=== PATIENT | female | born 1990 ===

== ENCOUNTER 2018-08-24 19:20 | Emergency (ER) | payer BC ==
--- NOTE | 2018-08-24 19:30 | EDM.PDOC ---
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 She states when she went to the bathroom she had noticed some light spotting when she went to wipe. She is concerned as she has had multiple miscarriages in the past. States she is approximately 8 weeks , "I've never made it this far in ". She did have a OB transvaginal ultrasound in the ER on 08/01/18 for abdominal cramping in early . Ultrasound showed a small intrauterine fluid collection, possibly representing early IUP. Committed repeat ultrasound and serial quantitative hCGs. She states she has not had any follow-up since that ER visit. Her first OB appointment is on September [address] Dodson. Patient denies any fever, chills, headache, change in vision, syncope or near syncope. Denies any chest pain, back pain, shortness of breath or cough. Denies any abdominal pain, nausea, vomiting, diarrhea, constipation or dysuria. Has not noted any blood in urine or stool. Patient has been eating and drinking appropriately. , P:0 with her last menstrual period being June 28, 2018. Review of systems: As per history of present illness and below otherwise all systems reviewed and negative. Past medical history: As per history of present illness and as reviewed below otherwise noncontributory. Surgical history: As per history of present illness and as reviewed below otherwise noncontributory. Social history: See social history for further information Family history: As per history of present illness and as reviewed below otherwise noncontributory. Physical exam: General: Well-developed and well-nourished 27-year-old female. Alert and oriented. Nontoxic appearing and in no acute distress. HEENT: Atraumatic, normocephalic, pupils equal and reactive bilaterally, negative for conjunctival pallor or scleral icterus, mucous membranes moist, TMs normal bilaterally, throat clear, neck supple, nontender, trachea midline. No drooling or trismus noted. No meningeal signs. No hot potato voice noted. Lungs: Clear to auscultation, breath sounds equal bilaterally, chest nontender. Heart: S1S2, regular rate and rhythm without overt murmur Abdomen: Soft, nondistended, nontender. Negative for masses or hepatosplenomegaly. Negative for costovertebral tenderness. Pelvis: Stable nontender. Genitourinary: This was done with consent and a nozzle worker at the bedside. External genitalia appears within normal limits. Cervical os is closed and no blood in the vaginal vault or coming from the cervical os. No discomfort or tenderness with exam. Rectal: Deferred. Skin: Intact, warm, dry. No lesions or rashes noted. Extremities: Atraumatic, moves all extremities per self without difficulty or deficits, negative for cords or calf pain. Neurovascular unremarkable. Neuro: Awake, alert, oriented. Cranial nerves II through XII unremarkable. Cerebellum unremarkable. Motor and sensory unremarkable throughout. Exam nonfocal. Notes: Quant HCG 76870. Ultrasound shows a live early IUP with a estimated age of 8 weeks and 4 days. Tiny probable subchorionic hemorrhage. Lab work his unremarkable. I did discuss with patient the need for follow-up and having repeat/serial quantitative hCGs. Supportive care measures were reviewed and discussed. Voices understanding and is agreeable to plan of care. Denies any further questions or concerns at this time. Diagnostics: CBC, CMP, UA, Quant HCGU, OB U/S, AB/RH Therapeutics: None Prescription: Outpatient Quant HCG Impression: Vaginal leading first trimester Plan: 1. Avoid any pelvic activity until cleared by your BULK INTAKE WORKER (sex, tampons, etc...) 2. vitamin daily. Tylenol as needed for pain management. 3. Please follow-up with Dr. Dodson for serial quant HCG ( hormone). Should have this redrawn on Monday. 4. Return to the ED as needed and as discussed. Definitive disposition and diagnosis as appropriate pending reevaluation and review of above. denies pain Pain Score (Numeric/FACES): 0 - Related Data Allergies Allergy/AdvReac Type Severity Reaction Status Date / Time shellfish derived Allergy Swelling Verified 08/24/18 19:34 Home Meds: Home Meds LORazepam [Ativan] 0.5 mg PO ASDIRECTED PRN 08/24/18 [History] Pnv No.95/Ferrous Fum/Folic AC [ Multivitamin Tablet] 1 each PO DAILY [History] buPROPion HCl [Wellbutrin Xl] 300 mg PO DAILY 08/24/18 [History] ED ROS GENERAL - Review of Systems Review Of Systems: ROS reveals no pertinent complaints other than HPI. ED EXAM - Physical Exam Exam: See Below (See dictation) Course - Vital Signs Last Recorded V/S: Last Vital Signs Temp 97.6 F 08/24/18 19:35 Pulse 84 08/24/18 19:35 Resp 18 08/24/18 19:35 BP 109/73 08/24/18 19:35 Pulse Ox 98 08/24/18 19:35 - Orders/Labs/Meds Labs: Laboratory Tests 08/24/18 08/24/18 08/24/18 Range/Units 19:35 20:55 20:55 WBC 14.53 H (4.0-11.0) K/uL RBC 4.56 (4.30-5.90) M/uL Hgb 12.2 (12.0-16.0) g/dL Hct 37.8 (36.0-46.0) % MCV 82.9 (80.0-98.0) fL MCH 26.8 L (27.0-32.0) pg MCHC 32.3 (31.0-37.0) g/dL RDW Std Deviation 42.8 (28.0-62.0) fl RDW Coeff of Judy 14 (11.0-15.0) % Plt Count 334 (150-400) K/uL MPV 9.60 (7.40-12.00) fL Neut % (Auto) 72.5 (48.0-80.0) % Lymph % (Auto) 19.5 (16.0-40.0) % [place] % (Auto) 6.8 (0.0-15.0) % Eos % (Auto) 1.1 (0.0-7.0) % Baso % (Auto) 0.1 (0.0-1.5) % Neut # (Auto) 10.5 H (1.4-5.7) K/uL Lymph # (Auto) 2.8 H (0.6-2.4) K/uL [place] # (Auto) 1.0 H (0.0-0.8) K/uL Eos # (Auto) 0.2 (0.0-0.7) K/uL Baso # (Auto) 0.0 (0.0-0.1) K/uL Nucleated RBC % 0.0 /100WBC Nucleated RBCs # 0 K/uL Sodium 138 (136-145) mmol/L Potassium 4.3 (3.5-5.1) mmol/L Chloride 102 (98-107) mmol/L Carbon Dioxide 23.2 (21.0-32.0) mmol/L BUN 13 (7.0-18.0) mg/dL Creatinine 0.6 (0.6-1.0) mg/dL Est Cr Clr Drug Dosing 116.50 mL/min Estimated GFR (MDRD) > 60.0 ml/min Glucose 98 (74-106) mg/dL Calcium 9.3 (8.5-10.1) mg/dL Total Bilirubin 0.2 (0.2-1.0) mg/dL AST 15 (15-37) IU/L ALT 23 (14-63) IU/L Alkaline Phosphatase 94 (46-116) U/L Total Protein 7.9 (6.4-8.2) g/dL Albumin 3.5 (3.4-5.0) g/dL Globulin 4.4 H (2.6-4.0) g/dL Albumin/Globulin Ratio 0.8 L (0.9-1.6) HCG, Quant 02840.0 mIU/mL Urine Color YELLOW Urine Appearance CLEAR Urine pH 6.0 (5.0-8.0) Ur Specific [place] >= 1.030 (1.001-1.035) Urine Protein NEGATIVE (NEGATIVE) mg/dL Urine Glucose (UA) NEGATIVE (NEGATIVE) mg/dL Urine Ketones NEGATIVE (NEGATIVE) mg/dL Urine Occult Blood MODERATE H (NEGATIVE) Urine Nitrite NEGATIVE (NEGATIVE) Urine Bilirubin NEGATIVE (NEGATIVE) Urine Urobilinogen 0.2 (<2.0) EU/dL Ur Leukocyte Esterase NEGATIVE (NEGATIVE) Urine RBC 0-1 (0-2/HPF) Urine WBC 0-1 (0-5/HPF) Ur Epithelial Cells RARE (NONE-FEW) Urine Bacteria RARE (NEGATIVE) Blood Type 08/24/18 Range/Units 20:55 WBC (4.0-11.0) K/uL RBC (4.30-5.90) M/uL Hgb (12.0-16.0) g/dL Hct (36.0-46.0) % MCV (80.0-98.0) fL MCH (27.0-32.0) pg MCHC (31.0-37.0) g/dL RDW Std Deviation (28.0-62.0) fl RDW Coeff of Judy (11.0-15.0) % Plt Count (150-400) K/uL MPV (7.40-12.00) fL Neut % (Auto) (48.0-80.0) % Lymph % (Auto) (16.0-40.0) % [place] % (Auto) (0.0-15.0) % Eos % (Auto) (0.0-7.0) % Baso % (Auto) (0.0-1.5) % Neut # (Auto) (1.4-5.7) K/uL Lymph # (Auto) (0.6-2.4) K/uL [place] # (Auto) (0.0-0.8) K/uL Eos # (Auto) (0.0-0.7) K/uL Baso # (Auto) (0.0-0.1) K/uL Nucleated RBC % /100WBC Nucleated RBCs # K/uL Sodium (136-145) mmol/L Potassium (3.5-5.1) mmol/L Chloride (98-107) mmol/L Carbon Dioxide (21.0-32.0) mmol/L BUN (7.0-18.0) mg/dL Creatinine (0.6-1.0) mg/dL Est Cr Clr Drug Dosing mL/min Estimated GFR (MDRD) ml/min Glucose (74-106) mg/dL Calcium (8.5-10.1) mg/dL Total Bilirubin (0.2-1.0) mg/dL AST (15-37) IU/L ALT (14-63) IU/L Alkaline Phosphatase (46-116) U/L Total Protein (6.4-8.2) g/dL Albumin (3.4-5.0) g/dL Globulin (2.6-4.0) g/dL Albumin/Globulin Ratio (0.9-1.6) HCG, Quant mIU/mL Urine Color Urine Appearance Urine pH (5.0-8.0) Ur Specific [place] (1.001-1.035) Urine Protein (NEGATIVE) mg/dL Urine Glucose (UA) (NEGATIVE) mg/dL Urine Ketones (NEGATIVE) mg/dL Urine Occult Blood (NEGATIVE) Urine Nitrite (NEGATIVE) Urine Bilirubin (NEGATIVE) Urine Urobilinogen (<2.0) EU/dL Ur Leukocyte Esterase (NEGATIVE) Urine RBC (0-2/HPF) Urine WBC (0-5/HPF) Ur Epithelial Cells (NONE-FEW) Urine Bacteria (NEGATIVE) Blood Type A POSITIVE Departure - Departure Time of Disposition: 21:20 Disposition: Home, Self-Care 01 Clinical Impression: Vaginal bleeding in patient at less than 20 weeks gestation - Discharge Information Instructions: Vaginal Bleeding During , First Trimester Referrals: Sharlene Tafoya NP [Primary Care Provider] - Forms: ED Department Discharge Additional Instructions: The following information is given to patients seen in the emergency department who are being discharged to home. This information is to outline your options for follow-up care. We provide all patients seen in our emergency department with a follow-up referral. The need for follow-up, as well as the timing and circumstances, are variable depending upon the specifics of your emergency department visit. If you don't have a primary care physician on staff, we will provide you with a referral. We always advise you to contact your personal physician following an emergency department visit to inform them of the circumstance of the visit and for follow-up with them and/or the need for any referrals to a consulting specialist. The emergency department will also refer you to a specialist when appropriate. This referral assures that you have the opportunity for follow-up care with a specialist. All of these measure are taken in an effort to provide you with optimal care, which includes your follow-up. Under all circumstances we always encourage you to contact your private physician who remains a resource for coordinating your care. When calling for follow-up care, please make the office aware that this follow-up is from your recent emergency room visit. If for any reason you are refused follow-up, please contact the [facility] Emergency Department at and asked to speak to the emergency department charge nurse. [facility] [address] [place] [address] [facility] [address] [place] [address] 1. Avoid any pelvic activity until cleared by your BULK INTAKE WORKER (sex, tampons, etc...) 2. vitamin daily. Tylenol as needed for pain management. 3. Please follow-up with Dr. Dodson for serial quant HCG ( hormone). Should have this redrawn on Monday. 4. Return to the ED as needed and as discussed.
--- NOTE | 2018-08-24 21:13 | US ---
INDICATION: SPOTTING, EARLY OB OBSTETRICAL ULTRASOUND Technique: Transvaginal scanning of the pelvis was performed. Findings: The uterus contains a gestational sac. The gestational sac contains a yolk sac and an embryonic pole which exhibits cardiac activity with a heart rate of 173 BPM. The crown-rump length corresponds to an estimated menstrual age of 8 weeks 4 days and an KAMILLA of 04/01/2019. There is a slit-like hypoechoic collection within the uterus adjacent to the gestational sac, 6 millimeters in length, which may represent a tiny subchorionic hemorrhage. A rounded 3-4 millimeter fluid collection is seen in the right uterine fundus, questionably representing an additional tiny subchorionic hemorrhage. The ovaries appear within normal limits bilaterally. There is a probable left ovarian corpus luteum. A trace amount of free pelvic fluid is identified, likely physiologic. IMPRESSION: 1. Live early intrauterine with estimated menstrual age of 8 weeks 4 days and KAMILLA of 04/01/2019. 2. Tiny probable subchorionic hemorrhage or hemorrhages, as noted above. KOKI BANEGAS MD [employer] Dictated by Ayden Banegas MD @ 08/24/2018 9:10:59 PM Dictated by: Ayden Banegas MD @ 08/24/2018 21:12:06 (Electronically Signed)
[2018-08-24 21:44] LABS: CHLORIDE,CL 102 mmol/L (98-107); SODIUM,NA 138 mmol/L (136-145)
== END 2018-08-24 22:05 | disposition home or self-care (01) ==
LOC: MW.ED 19:20
DX: O20.9 Hemorrhage in early pregnancy, unspecified (principal); Z79.899 Other long term (current) drug therapy; Z91.013 Allergy to seafood; Z3A.08 8 weeks gestation of pregnancy
CPT/HCPCS: 36415; 76801; 76801-26; 80053; 81001; 84702; 85025; 86900; 86901; 99284; 99284-25

== ENCOUNTER 2019-03-25 23:14 | Inpatient (IN) | payer BC ==
[2019-03-26] MEDS ORDERED: Carboprost Tromethamine 250 MCG/1 ML Amp IM PRN (00:29)
[2019-03-26] MEDS ORDERED: Sodium Chloride 0.9% 2.5 ML Syringe FLUSH PRN (00:29)
[2019-03-26] MEDS ORDERED: Ampicillin 2 GM in Sodium Chloride 0.9% 100 ML IV ONE (00:29)
[2019-03-26] MEDS ORDERED: Butorphanol 1 MG/ML SDV IVPUSH PRN (00:29)
[2019-03-26] MEDS ORDERED: Sodium Chloride 0.9% 10 ML Syringe FLUSH PRN (00:29)
[2019-03-26] MEDS ORDERED: Methylergonovine 0.2 MG/1 ML Amp IM PRN (00:29)
[2019-03-26] MEDS ORDERED: Misoprostol 200 MCG Tab PO PRN (00:29)
[2019-03-26] MEDS ORDERED: Tranexamic Acid 1,000 MG in Sodium Chloride 0.9% 100 ML IV PRN (00:29)
[2019-03-26] MEDS ORDERED: Water For Irrigation,Sterile 1,000 ML Container IRR PRN (00:29)
[2019-03-26] MEDS ORDERED: Lidocaine 1% 50 ML MDV INJECT PRN (00:29)
[2019-03-26] MEDS ORDERED: Ondansetron 4 MG/2 ML SDV IVPUSH PRN (00:29)
[2019-03-26] MEDS ORDERED: Nalbuphine 10 MG/1 ML Vial IVPUSH PRN (00:29)
[2019-03-26] MEDS ORDERED: Sodium Chloride 0.9% 10 ML SDV IV PRN (00:29)
[2019-03-26] MEDS ORDERED: Oxytocin/0.9 % Sodium Chloride 30 UNIT/500 ML BAG IV SCH ×2 (00:30→16:00)
[2019-03-26] MEDS ORDERED: Lactated Ringers 1,000 ML IV SCH (00:30)
[2019-03-26] MEDS ORDERED: Misoprostol 50 MCG (1/2 of 100 MCG) Tab PO ONE ×2 (00:37→06:28)
[2019-03-26] MEDS: Ampicillin 1 GM in Sodium Chloride 0.9% 50 ML IV SCH ×4 (05:04→18:47)
--- NOTE | 2019-03-26 06:20 | PCM.LDHP ---
L&D History of Present Illness - General Date of Service: 03/26/19 Admit Problem/Dx: Patient Status Order with Admit Dx/Problem 03/25/19 23:27 Patient Status [ADT] Routine 03/26/19 00:29 Patient Status [ADT] Routine Admission Diagnosis/Problem Admission Diagnosis/Problem - planned 03/26/19 06:15 28 yo EDC 04/04/2019 38 5/7wks A+, RI, GBS pos. Comes due to SROM Source of Information: Patient History Limitations: Reports: No Limitations - History of Present Illness Pain Score: 7 Improves with: Reports: None Worsens with: Reports: None Associated Symptoms: Reports: N - Related Data Allergies/Adverse Reactions: Allergies Allergy/AdvReac Type Severity Reaction Status Date / Time shellfish derived Allergy Swelling Verified 08/24/18 19:34 Home Medications: Home Meds LORazepam [Ativan] 0.5 mg PO ASDIRECTED PRN 08/24/18 [History] Pnv No.95/Ferrous Fum/Folic AC [ Multivitamin Tablet] 1 each PO DAILY [History] buPROPion HCl [Wellbutrin Xl] 300 mg PO DAILY 08/24/18 [History] Past Medical History HEENT History: Reports: None Cardiovascular History: Reports: None Respiratory History: Reports: None Gastrointestinal History: Reports: None Genitourinary History: Reports: None 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: , 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 Musculoskeletal History: Reports: None Neurological History: Reports: None Psychiatric History: Reports: Anxiety, Depression Endocrine/Metabolic History: Reports: None Hematologic History: Reports: None Immunologic History: Reports: None Oncologic (Cancer) History: Reports: None Dermatologic History: Reports: None - Infectious Disease History Infectious Disease History: Reports: None - Past Surgical History Head Surgeries/Procedures: Reports: None Social & Family History - Family History Family Medical History: Noncontributory - Tobacco Use Smoking Status *Q: Former Smoker Years of Tobacco use: 6 Used Tobacco, but Quit: Yes Month/Year Tobacco Last Used: 08/16/2018 Second Hand Smoke Exposure: No - Caffeine Use Caffeine Use: Reports: Coffee, Soda - Recreational Drug Use Recreational Drug Use: No H&P Review of Systems - Review of Systems: Review Of Systems: See Below General: Reports: No Symptoms HEENT: Reports: No Symptoms Pulmonary: Reports: No Symptoms Cardiovascular: Reports: No Symptoms Gastrointestinal: Reports: No Symptoms Genitourinary: Reports: No Symptoms Musculoskeletal: Reports: No Symptoms Skin: Reports: No Symptoms Psychiatric: Reports: No Symptoms Neurological: Reports: No Symptoms Hematologic/Lymphatic: Reports: No Symptoms Immunologic: Reports: No Symptoms L&D Exam - Exam Exam: See Below - Vital Signs Weight: 125.191 kg - OB Specific Contraction Intensity: Mild Movement: Active Heart Tones: Present Heart Tones per Min: 130 Heart Rate (FHR) Variability: Minimal (0-5 bpm) Presentation: Vertex - Fletcher Score Fletcher Score Cervix Position: Posterior Fletcher Score Consistency: Soft Fletcher Score Effacement: 31-50% Fletcher Score Dilation: 3-4 cm Fletcher Score 's Station: -2 Fletcher Score Total: 6 - Exam General: Alert, Oriented HEENT: Hearing Intact Lungs: Normal Respiratory Effort GI/Abdominal Exam: Soft Rectal Exam: Deferred Genitourinary: Normal external exam, Normal bimanual exam, Cervical dilitation, Cervical fluid. No: Vaginal bleeding Back Exam: Full Range of Motion Extremities: Normal Range of Motion Skin: Warm, Dry, Intact Neurological: Cranial Nerves Intact, Normal Speech, Normal Tone Psychiatric: Alert, Normal Affect, Normal Mood - Patient Data Lab Results Last 24 hrs: Laboratory Results - last 24 hr 03/25/19 03/26/19 03/26/19 Range/Units 23:20 00:55 00:55 WBC 15.73 H (4.0-11.0) K/uL RBC 4.08 L (4.30-5.90) M/uL Hgb 10.4 L (12.0-16.0) g/dL Hct 31.4 L (36.0-46.0) % MCV 77.0 L (80.0-98.0) fL MCH 25.5 L (27.0-32.0) pg MCHC 33.1 (31.0-37.0) g/dL RDW Std Deviation 40.8 (28.0-62.0) fl RDW Coeff of Judy 15 (11.0-15.0) % Plt Count 353 (150-400) K/uL MPV 11.10 (7.40-12.00) fL Membrane Rupture POSITIVE Blood Type A POSITIVE Antibody Screen NEGATIVE Result Diagrams: 03/26/19 00:55 - Problem List (1) Supervision of normal IUP (intrauterine ) in primigravida SNOMED Code(s): 35755281, 156146674, 613541600, 383372290 ICD Code: Z34.00 - ENCNTR FOR SUPRVSN OF NORMAL FIRST , UNSP TRIMESTER Status: Acute Current Visit: Yes Qualifiers: Trimester: third trimester Qualified Code(s): Z34.03 - Encounter for supervision of normal first , third trimester Problem List Initiated/Reviewed/Updated: Yes Orders Last 24hrs: Active Orders 24 hr Category Date Time Status Patient Status [ADT] Routine ADT 03/25/19 23:27 Active Patient Status [ADT] Routine ADT 03/26/19 00:29 Active Heart Tones [RC] CONTINUOUS Care 03/26/19 00:29 Active Non Stress Test [RC] PER UNIT ROUTINE Care 03/25/19 23:27 Active May Shower [RC] ASDIRECTED Care 03/26/19 00:29 Active Notify Provider [RC] PRN Care 03/26/19 00:29 Active Up ad [place] [RC] ASDIRECTED Care 03/25/19 23:27 Active Vaginal Exam [RC] Click to Edit Care 03/25/19 23:27 Active Vital Signs [RC] PER UNIT ROUTINE Care 03/25/19 23:27 Active RPR (SYPHILIS SERO) W/ RFLX [REF] Routine Lab 03/26/19 00:55 Received Ampicillin 1 gm Med 03/26/19 05:00 Active Sodium Chloride 0.9% [Normal Saline] 50 ml IV Q4H Butorphanol [Stadol] Med 03/26/19 00:29 Active 1 mg IVPUSH Q1H PRN Carboprost Tromethamine [Hemabate DS] Med 03/26/19 00:29 Active 250 mcg IM ASDIRECTED PRN Lactated Ringers [Ringers, Lactated] 1,000 ml Med 03/26/19 00:30 Active IV ASDIRECTED Lidocaine 1% [Xylocaine 1%] Med 03/26/19 00:29 Active 50 ml INJECT ONETIME PRN Methylergonovine [Methergine] Med 03/26/19 00:29 Active 0.2 mg IM ASDIRECTED PRN Nalbuphine [Nubain] Med 03/26/19 00:29 Active 10 mg IVPUSH Q1H PRN Ondansetron [Zofran] Med 03/26/19 00:29 Active 4 mg IVPUSH Q4H PRN Oxytocin/0.9 % Sodium Chloride [Oxytocin 30 Unit/500 ML Med 03/26/19 00:30 Active -NS] 30 unit in 500 ml IV TITRATE Sodium Chloride 0.9% [Normal Saline] Med 03/26/19 00:29 Active 10 ml IV ASDIRECTED PRN Sodium Chloride 0.9% [Saline Flush] Med 03/26/19 00:29 Active 10 ml FLUSH ASDIRECTED PRN Sodium Chloride 0.9% [Saline Flush] Med 03/26/19 00:29 Active 2.5 ml FLUSH ASDIRECTED PRN Tranexamic Acid [Cyklokapron] 1,000 mg Med 03/26/19 00:29 Active Sodium Chloride 0.9% [Normal Saline] 100 ml IV ONETIME Water For Irrigation,Sterile [Sterile Water for Med 03/26/19 00:29 Active Irrigation] 1,000 ml IRR ASDIRECTED PRN miSOPROStoL [Cytotec] Med 03/26/19 00:29 Active 200 mcg PO ONETIME PRN Scalp Electrode [WOMSER] Per Unit Routine Oth 03/26/19 00:29 Ordered Peripheral IV Insertion Adult [OM.PC] Routine Oth 03/26/19 00:29 Ordered Resuscitation Status Routine Resus Stat 03/25/19 23:27 Ordered Medication Orders Butorphanol Tartrate (Stadol) 1 mg IVPUSH Q1H PRN PRN Reason: Pain Carboprost Tromethamine (Hemabate Ds) 250 mcg IM ASDIRECTED PRN PRN Reason: Post Hemorrhage Tranexamic Acid 1,000 mg/ (Sodium Chloride) 110 mls @ 660 mls/hr IV ONETIME PRN PRN Reason: Bleeding Lactated Ringer's (Ringers, Lactated) 1,000 mls @ 150 mls/hr IV ASDIRECTED VINCENT Last Admin: 03/26/19 01:05 Dose: 150 mls/hr Oxytocin/Sodium Chloride (Oxytocin 30 Unit/500 Ml-Ns) 30 unit in 500 mls @ 500 mls/hr IV TITRATE VINCENT Ampicillin Sodium 1 gm/ Sodium (Chloride) 50 mls @ 100 mls/hr IV Q4H VINCENT Last Admin: 03/26/19 05:04 Dose: 100 mls/hr Lidocaine HCl (Xylocaine 1%) 50 ml INJECT ONETIME PRN PRN Reason: Laceration repair Methylergonovine Maleate (Methergine) 0.2 mg IM ASDIRECTED PRN PRN Reason: Post Hemorrhage Misoprostol (Cytotec) 200 mcg PO ONETIME PRN PRN Reason: Post Hemorrhage Nalbuphine HCl (Nubain) 10 mg IVPUSH Q1H PRN PRN Reason: Pain (severe 7-10) Last Admin: 03/26/19 04:59 Dose: 10 mg Ondansetron HCl (Zofran) 4 mg IVPUSH Q4H PRN PRN Reason: Nausea/Vomiting Sodium Chloride (Saline Flush) 10 ml FLUSH ASDIRECTED PRN PRN Reason: Keep Vein Open Sodium Chloride (Saline Flush) 2.5 ml FLUSH ASDIRECTED PRN PRN Reason: Keep Vein Open Sodium Chloride (Normal Saline) 10 ml IV ASDIRECTED PRN PRN Reason: IV Use Sterile Water (Sterile Water For Irrigation) 1,000 ml IRR ASDIRECTED PRN PRN Reason: delivery Assessment/Plan Comment:: Admit for SROM A: 28 yo EDC 04/04/2019 38 5/7wks A+, RI, GBS pos. Comes due to SROM P: Admit, Amp for GBS pos, epidural prn, anticipate . Dr Dodson updated
[2019-03-26] MEDS ORDERED: fentaNYL 100 MCG/2 ML SDV ONE ×2 (13:20→21:30)
[2019-03-26] MEDS ORDERED: Ropivacaine HCl/PF 100 ML ONE ×2 (13:20→21:30)
--- NOTE | 2019-03-26 13:44 | PCM.PREANE ---
Preanesthetic Assessment - Anesthesia/Transfusion/Family Hx Anesthesia History: No Prior Anesthesia Family History of Anesthesia Reaction: No - Physical Assessment NPO Status Date: 03/26/19 NPO Status Time: 12:30 Height: 1.6 m Weight: 125.191 kg ASA Class: 2 - Lab Values: Laboratory Last Values WBC 15.73 K/uL (4.0-11.0) H 03/26/19 00:55 RBC 4.08 M/uL (4.30-5.90) L 03/26/19 00:55 Hgb 10.4 g/dL (12.0-16.0) L 03/26/19 00:55 Hct 31.4 % (36.0-46.0) L 03/26/19 00:55 MCV 77.0 fL (80.0-98.0) L 03/26/19 00:55 MCH 25.5 pg (27.0-32.0) L 03/26/19 00:55 MCHC 33.1 g/dL (31.0-37.0) 03/26/19 00:55 RDW Std Deviation 40.8 fl (28.0-62.0) 03/26/19 00:55 RDW Coeff of Judy 15 % (11.0-15.0) 03/26/19 00:55 Plt Count 353 K/uL (150-400) 03/26/19 00:55 MPV 11.10 fL (7.40-12.00) 03/26/19 00:55 Membrane Rupture POSITIVE 03/25/19 23:20 Blood Type A POSITIVE 03/26/19 00:55 Antibody Screen NEGATIVE 03/26/19 00:55 - Allergies Allergies/Adverse Reactions: Allergies Allergy/AdvReac Type Severity Reaction Status Date / Time shellfish derived Allergy Swelling Verified 08/24/18 19:34 - Acknowledgements Anesthesia Type Planned: Epidural Pt an Appropriate Candidate for the Planned Anesthesia: Yes Alternatives and Risks of Anesthesia Discussed w Pt/Guardian: Yes Pt/Guardian Understands and Agrees with Anesthesia Plan: Yes PreAnesthesia Questionnaire HEENT History: Reports: None Cardiovascular History: Reports: None Respiratory History: Reports: None Gastrointestinal History: Reports: None Genitourinary History: Reports: None 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: , 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 Musculoskeletal History: Reports: None Neurological History: Reports: None Psychiatric History: Reports: Anxiety, Depression Endocrine/Metabolic History: Reports: None Hematologic History: Reports: None Immunologic History: Reports: None Oncologic (Cancer) History: Reports: None Dermatologic History: Reports: None - Infectious Disease History Infectious Disease History: Reports: None - Past Surgical History Head Surgeries/Procedures: Reports: None - SUBSTANCE USE Smoking Status *Q: Former Smoker Second Hand Smoke Exposure: No Recreational Drug Use History: No - HOME MEDS Home Medications: Home Meds LORazepam [Ativan] 0.5 mg PO ASDIRECTED PRN 08/24/18 [History] Pnv No.95/Ferrous Fum/Folic AC [ Multivitamin Tablet] 1 each PO DAILY [History] buPROPion HCl [Wellbutrin Xl] 300 mg PO DAILY 08/24/18 [History] - CURRENT (IN HOUSE) MEDS Current Meds: Current Medications Butorphanol Tartrate (Stadol) 1 mg IVPUSH Q1H PRN PRN Reason: Pain Carboprost Tromethamine (Hemabate Ds) 250 mcg IM ASDIRECTED PRN PRN Reason: Post Hemorrhage Tranexamic Acid 1,000 mg/ (Sodium Chloride) 110 mls @ 660 mls/hr IV ONETIME PRN PRN Reason: Bleeding Lactated Ringer's (Ringers, Lactated) 1,000 mls @ 150 mls/hr IV ASDIRECTED [facility] Last Admin: 03/26/19 01:05 Dose: 150 mls/hr Oxytocin/Sodium Chloride (Oxytocin 30 Unit/500 Ml-Ns) 30 unit in 500 mls @ 500 mls/hr IV TITRATE [facility] Ampicillin Sodium 1 gm/ Sodium (Chloride) 50 mls @ 100 mls/hr IV Q4H [facility] Last Admin: 03/26/19 10:10 Dose: 100 mls/hr Lidocaine HCl (Xylocaine 1%) 50 ml INJECT ONETIME PRN PRN Reason: Laceration repair Methylergonovine Maleate (Methergine) 0.2 mg IM ASDIRECTED PRN PRN Reason: Post Hemorrhage Misoprostol (Cytotec) 200 mcg PO ONETIME PRN PRN Reason: Post Hemorrhage Nalbuphine HCl (Nubain) 10 mg IVPUSH Q1H PRN PRN Reason: Pain (severe 7-10) Last Admin: 03/26/19 04:59 Dose: 10 mg Ondansetron HCl (Zofran) 4 mg IVPUSH Q4H PRN PRN Reason: Nausea/Vomiting Sodium Chloride (Saline Flush) 10 ml FLUSH ASDIRECTED PRN PRN Reason: Keep Vein Open Sodium Chloride (Saline Flush) 2.5 ml FLUSH ASDIRECTED PRN PRN Reason: Keep Vein Open Sodium Chloride (Normal Saline) 10 ml IV ASDIRECTED PRN PRN Reason: IV Use Sterile Water (Sterile Water For Irrigation) 1,000 ml IRR ASDIRECTED PRN PRN Reason: delivery Discontinued Medications Fentanyl (Sublimaze) Confirm Administered Dose 100 mcg .ROUTE .STK-MED ONE Stop: 03/26/19 13:21 Ampicillin Sodium 2 gm/ Sodium (Chloride) 100 mls @ 200 mls/hr IV ONETIME ONE Stop: 03/26/19 00:58 Last Admin: 03/26/19 01:05 Dose: 200 mls/hr Ropivacaine (Naropin 0.2%) Confirm Administered Dose 100 mls @ as directed .ROUTE .STK-MED ONE Stop: 03/26/19 13:21 Misoprostol (Cytotec) 25 mcg PO ONETIME ONE Stop: 03/26/19 00:38 Last Admin: 03/26/19 01:18 Dose: 25 mcg Misoprostol (Cytotec) 50 mcg PO ONETIME ONE Stop: 03/26/19 06:29 Last Admin: 03/26/19 07:57 Dose: 50 mcg
--- NOTE | 2019-03-26 13:47 | PCM.PRNOTE ---
- Free Text/Narrative Note: Anes Note Patient requests epidural for L&D. Sitting position, level L3-L4 midline approach. Sterile technique. Chloraprep scrub to lumbar area. Sterile fenestrated drape applied.Epidural space easily achieved single attempt using GIN technique. GIN at 4 cm. Cath threaded 5 cm with ease. Cath secured at 10 cm at skin using sterile clear adhesive dressing. Jayjay well. 1330 test 3 cc 1.5% lido with epi negative. 1333 Load 10 cc 0.2% ropivicaine with 1 mcg cc fentanyl in slow divided doses. 1339 Pump started with 90 cc same solution at 8 cc hr with 6 cc q 20 min prn bolus. Time with patient [id number] Thomas Wade RN RECRUITMENT
[2019-03-26] MEDS ORDERED: Misoprostol 25 MCG (1/4 of 100 MCG) Tab VAG PRN ×2 (16:00)
[2019-03-26] MEDS ORDERED: Terbutaline 1 MG/ML SDV SUBCUT PRN (16:00)
--- NOTE | 2019-03-26 21:40 | PCM.PRNOTE ---
- Free Text/Narrative Note: Anes Note Epidural infusion is nearly complete. A new 100 cc bag of 0.2% ropiviciane with 1 mcg cc fentanyl added was placed. The rate is 8 cc hr with a 6 cc bolus q 20 mi prn. Patient reports excellent analgesia. Time with patient [id number] Thomas Wade CRNA
--- NOTE | 2019-03-27 00:15 | PCM.DEL ---
L & D Note - General Info Date of Service: 03/27/19 Mother's Due Date: 04/04/19 - Delivery Note Labor: Spontaneous (/), Augmented by Oxytocin Cervical Ripening Method: Misoprostil Delivery Outcome: Livebirth Infant Delivery Method: Spontaneous Vaginal Delivery-Single Infant Delivery Mode: Spontaneous Presentation: Vertex Nuchal Cord: None Anesthesia Type: Epidural Amniotic Fluid Description: Clear Episiotomy Type: None Laceration: Vaginal (Hemostatic) Placenta: Intact, Spontaneous Cord: 3 Vessels Estimated Blood Loss: 200 Resuscitation Needed: No Roy: Stimulated, Warmed, [place] Used Score 1 min: 8 Score 5 min: 9 Second Stage Interventions: Reports: Pushing, Pulls Own Legs Back Delivery Comments (Free Text/Narrative):: Patient is a at 38.5 weeks gestation, A+/RI/GBS +. of viable NBF delivered by RN in bed. Provider entered the room 1-2 minutes post- of . Spontaneous vaginal delivery of placenta by provider. Small hemostatic posterior vaginal laceration noted, not repaired. Patient perineum cleaned, resting comfortably in bed with active alert NBM on abdomen. - General Info Date of Service: 03/27/19 Admission Dx/Problem (Free Text): Patient Status Order with Admit Dx/Problem 03/25/19 23:27 Patient Status [ADT] Routine 03/26/19 00:29 Patient Status [ADT] Routine Admission Diagnosis/Problem Admission Diagnosis/Problem - planned 03/26/19 06:15 28 yo EDC 04/04/2019 38 5/7wks A+, RI, GBS pos. Comes due to SROM Functional Status: Reports: Pain Controlled - Review of Systems General: Reports: No Symptoms Pulmonary: Reports: No Symptoms Cardiovascular: Reports: No Symptoms Genitourinary: Reports: No Symptoms Musculoskeletal: Reports: No Symptoms Neurological: Reports: No Symptoms Psychiatric: Reports: No Symptoms - Patient Data Weight - Most Recent: 276 lb Lab Results Last 24 Hours: Laboratory Results - last 24 hr 03/26/19 03/26/19 Range/Units 00:55 00:55 WBC 15.73 H (4.0-11.0) K/uL RBC 4.08 L (4.30-5.90) M/uL Hgb 10.4 L (12.0-16.0) g/dL Hct 31.4 L (36.0-46.0) % MCV 77.0 L (80.0-98.0) fL MCH 25.5 L (27.0-32.0) pg MCHC 33.1 (31.0-37.0) g/dL RDW Std Deviation 40.8 (28.0-62.0) fl RDW Coeff of Judy 15 (11.0-15.0) % Plt Count 353 (150-400) K/uL MPV 11.10 (7.40-12.00) fL Blood Type A POSITIVE Antibody Screen NEGATIVE Med Orders - Current: Current Medications Butorphanol Tartrate (Stadol) 1 mg IVPUSH Q1H PRN PRN Reason: Pain Carboprost Tromethamine (Hemabate Ds) 250 mcg IM ASDIRECTED PRN PRN Reason: Post Hemorrhage Tranexamic Acid 1,000 mg/ (Sodium Chloride) 110 mls @ 660 mls/hr IV ONETIME PRN PRN Reason: Bleeding Lactated Ringer's (Ringers, Lactated) 1,000 mls @ 150 mls/hr IV ASDIRECTED [facility] Last Admin: 03/26/19 01:05 Dose: 150 mls/hr Oxytocin/Sodium Chloride (Oxytocin 30 Unit/500 Ml-Ns) 30 unit in 500 mls @ 500 mls/hr IV TITRATE [facility] Ampicillin Sodium 1 gm/ Sodium (Chloride) 50 mls @ 100 mls/hr IV Q4H [facility] Last Admin: 03/26/19 18:47 Dose: 100 mls/hr Oxytocin/Sodium Chloride (Oxytocin 30 Unit/500 Ml-Ns) 30 unit in 500 mls @ 2 mls/hr IV TITRATE [facility]; Protocol Last Titration: 03/26/19 22:00 Dose: 14 munits/min, 14 mls/hr Lidocaine HCl (Xylocaine 1%) 50 ml INJECT ONETIME PRN PRN Reason: Laceration repair Methylergonovine Maleate (Methergine) 0.2 mg IM ASDIRECTED PRN PRN Reason: Post Hemorrhage Misoprostol (Cytotec) 200 mcg PO ONETIME PRN PRN Reason: Post Hemorrhage Misoprostol (Cytotec) 25 mcg VAG ONETIME PRN PRN Reason: Cervical Ripening Misoprostol (Cytotec) 25 mcg VAG Q4H PRN PRN Reason: Cervical Ripening Nalbuphine HCl (Nubain) 10 mg IVPUSH Q1H PRN PRN Reason: Pain (severe 7-10) Last Admin: 03/26/19 04:59 Dose: 10 mg Ondansetron HCl (Zofran) 4 mg IVPUSH Q4H PRN PRN Reason: Nausea/Vomiting Sodium Chloride (Saline Flush) 10 ml FLUSH ASDIRECTED PRN PRN Reason: Keep Vein Open Sodium Chloride (Saline Flush) 2.5 ml FLUSH ASDIRECTED PRN PRN Reason: Keep Vein Open Sodium Chloride (Normal Saline) 10 ml IV ASDIRECTED PRN PRN Reason: IV Use Sterile Water (Sterile Water For Irrigation) 1,000 ml IRR ASDIRECTED PRN PRN Reason: delivery Terbutaline Sulfate (Brethine) 0.25 mg SUBCUT ASDIRECTED PRN PRN Reason: Tacysystole Discontinued Medications Fentanyl (Sublimaze) Confirm Administered Dose 100 mcg .ROUTE .STK-MED ONE Stop: 03/26/19 13:21 Fentanyl (Sublimaze) Confirm Administered Dose 100 mcg .ROUTE .STK-MED ONE Stop: 03/26/19 21:31 Ampicillin Sodium 2 gm/ Sodium (Chloride) 100 mls @ 200 mls/hr IV ONETIME ONE Stop: 03/26/19 00:58 Last Admin: 03/26/19 01:05 Dose: 200 mls/hr Ropivacaine (Naropin 0.2%) Confirm Administered Dose 100 mls @ as directed .ROUTE .STK-MED ONE Stop: 03/26/19 13:21 Ropivacaine (Naropin 0.2%) Confirm Administered Dose 100 mls @ as directed .ROUTE .STK-MED ONE Stop: 03/26/19 21:31 Misoprostol (Cytotec) 25 mcg PO ONETIME ONE Stop: 03/26/19 00:38 Last Admin: 03/26/19 01:18 Dose: 25 mcg Misoprostol (Cytotec) 50 mcg PO ONETIME ONE Stop: 03/26/19 06:29 Last Admin: 03/26/19 07:57 Dose: 50 mcg - Exam General: Alert, Oriented, Cooperative, No Acute Distress HEENT: Pupils Equal Lungs: Normal Respiratory Effort Cardiovascular: Regular Rate, Regular Rhythm GI/Abdominal Exam: Soft, Non-Tender (Female) Exam: Normal External Exam Skin: Warm, Dry, Intact Neurological: No New Focal Deficit Psy/Mental Status: Alert, Normal Affect, Normal Mood - Problem List & Annotations (1) (normal spontaneous vaginal delivery) SNOMED Code(s): 93646067, 766209529 Code(s): O80 - ENCOUNTER FOR FULL-TERM UNCOMPLICATED DELIVERY Status: Acute Priority: High Current Visit: Yes - Problem List Review Problem List Initiated/Reviewed/Updated: Yes - Assessment Assessment:: Continue with recovery from uncomplicated . - Plan Plan:: Admit for SROM A: 28 yo EDC 04/04/2019 38 5/7wks A+, RI, GBS pos. Comes due to SROM P: Admit, Amp for GBS pos, epidural prn, anticipate . Dr Dodson updated Delivery A: Uncomplicated , 09/21, 8lb 0oz NBM, intact, EBL 200, stable P: Continue with POC.
[2019-03-27] MEDS ORDERED: Witch Hazel Medicated Pads 40/Jar TOP PRN (00:25)
[2019-03-27] MEDS ORDERED: Acetaminophen 500 MG Tab PO PRN (00:25)
[2019-03-27] MEDS ORDERED: Benzocaine/Menthol 20%-0.5% Spray 78 GM Cannister TOP PRN (00:25)
[2019-03-27] MEDS ORDERED: oxyCODONE 5 MG Tab PO PRN (00:25)
[2019-03-27] MEDS ORDERED: Lanolin 100% Cream 7 GM Tube TOP PRN (00:25)
[2019-03-27] MEDS ORDERED: Bisacodyl 10 MG Supp RECTAL PRN (00:25)
[2019-03-27] MEDS ORDERED: Ibuprofen 400 MG Tab PO PRN (00:25)
[2019-03-27] MEDS: Ibuprofen 800 MG Tab PO PRN ×4 (02:42→20:07)
--- NOTE | 2019-03-27 07:42 | PCM48HPAN ---
Post Anesthesia Note - EVALUATION WITHIN 48HRS OF ANESTHETIC Vital Signs in Normal Range: Yes Patient Participated in Evaluation: Yes Respiratory Function Stable: Yes Airway Patent: Yes Cardiovascular Function Stable: Yes Hydration Status Stable: Yes Pain Control Satisfactory: Yes Nausea and Vomiting Control Satisfactory: Yes Mental Status Recovered: Yes Vital Signs: Last Vital Signs Temp 36.6 C 03/27/19 05:02 Pulse 82 03/27/19 05:02 Resp 16 03/27/19 05:02 BP 113/68 03/27/19 05:02 Pulse Ox 97 03/27/19 05:02
[2019-03-27] MEDS: Docusate Sodium 100 MG Cap PO PRN ×2 (08:05→20:07)
--- NOTE | 2019-03-27 08:27 | PCM.PNPP ---
- General Info Date of Service: 03/27/19 Admission Dx/Problem (Free Text): Patient Status Order with Admit Dx/Problem 03/25/19 23:27 Patient Status [ADT] Routine 03/26/19 00:29 Patient Status [ADT] Routine Admission Diagnosis/Problem Admission Diagnosis/Problem - planned 03/26/19 06:15 28 yo EDC 04/04/2019 38 5/7wks A+, RI, GBS pos. Comes due to SROM Functional Status: Reports: Pain Controlled - Review of Systems General: Reports: No Symptoms HEENT: Reports: No Symptoms Pulmonary: Reports: No Symptoms Cardiovascular: Reports: No Symptoms Gastrointestinal: Reports: No Symptoms Genitourinary: Reports: No Symptoms Musculoskeletal: Reports: No Symptoms Skin: Reports: No Symptoms Neurological: Reports: No Symptoms Psychiatric: Reports: No Symptoms - General Info Date of Service: 03/27/19 - Patient Data Vital Signs - Most Recent: Last Vital Signs Temp 97.8 F 03/27/19 05:02 Pulse 82 03/27/19 05:02 Resp 16 03/27/19 05:02 BP 113/68 03/27/19 05:02 Pulse Ox 97 03/27/19 05:02 Weight - Most Recent: 276 lb Med Orders - Current: Current Medications Acetaminophen (Tylenol Extra Strength) 500 mg PO Q4H PRN PRN Reason: Pain Acetaminophen (Tylenol Extra Strength) 1,000 mg PO Q4H PRN PRN Reason: Pain Benzocaine/Menthol (Dermoplast Pain Relief 20%-0.5% [place]) 78 gm TOP ASDIRECTED PRN PRN Reason: Perineal Comfort Measure Last Admin: 03/27/19 02:41 Dose: 1 sprays Bisacodyl (Dulcolax) 10 mg RECTAL ONETIME PRN PRN Reason: Constipation Docusate Sodium (Colace) 100 mg PO BID PRN PRN Reason: Constipation Last Admin: 03/27/19 08:05 Dose: 100 mg Emollient Ointment (Lansinoh Hpa) 0 gm TOP ASDIRECTED PRN PRN Reason: Sore Nipples Ibuprofen (Motrin) 400 mg PO Q4H PRN PRN Reason: Pain Ibuprofen (Motrin) 800 mg PO Q6H PRN PRN Reason: Pain Last Admin: 03/27/19 08:04 Dose: 800 mg Oxycodone HCl (Oxycodone) 5 mg PO Q2H PRN PRN Reason: Pain Witch Aylin (Tucks) 1 pad TOP ASDIRECTED PRN PRN Reason: comfort care Last Admin: 03/27/19 02:41 Dose: 1 applic Discontinued Medications Butorphanol Tartrate (Stadol) 1 mg IVPUSH Q1H PRN PRN Reason: Pain Carboprost Tromethamine (Hemabate Ds) 250 mcg IM ASDIRECTED PRN PRN Reason: Post Hemorrhage Fentanyl (Sublimaze) Confirm Administered Dose 100 mcg .ROUTE .STK-MED ONE Stop: 03/26/19 13:21 Fentanyl (Sublimaze) Confirm Administered Dose 100 mcg .ROUTE .STK-MED ONE Stop: 03/26/19 21:31 Tranexamic Acid 1,000 mg/ (Sodium Chloride) 110 mls @ 660 mls/hr IV ONETIME PRN PRN Reason: Bleeding Ampicillin Sodium 2 gm/ Sodium (Chloride) 100 mls @ 200 mls/hr IV ONETIME ONE Stop: 03/26/19 00:58 Last Admin: 03/26/19 01:05 Dose: 200 mls/hr Lactated Ringer's (Ringers, Lactated) 1,000 mls @ 150 mls/hr IV ASDIRECTED [facility] Last Admin: 03/26/19 01:05 Dose: 150 mls/hr Oxytocin/Sodium Chloride (Oxytocin 30 Unit/500 Ml-Ns) 30 unit in 500 mls @ 500 mls/hr IV TITRATE [facility] Ampicillin Sodium 1 gm/ Sodium (Chloride) 50 mls @ 100 mls/hr IV Q4H [facility] Stop: 03/27/19 00:24 Last Admin: 03/26/19 18:47 Dose: 100 mls/hr Ropivacaine (Naropin 0.2%) Confirm Administered Dose 100 mls @ as directed .ROUTE .STK-MED ONE Stop: 03/26/19 13:21 Oxytocin/Sodium Chloride (Oxytocin 30 Unit/500 Ml-Ns) 30 unit in 500 mls @ 2 mls/hr IV TITRATE [facility]; Protocol Last Titration: 03/26/19 22:00 Dose: 14 munits/min, 14 mls/hr Ropivacaine (Naropin 0.2%) Confirm Administered Dose 100 mls @ as directed .ROUTE .STK-MED ONE Stop: 03/26/19 21:31 Lidocaine HCl (Xylocaine 1%) 50 ml INJECT ONETIME PRN PRN Reason: Laceration repair Methylergonovine Maleate (Methergine) 0.2 mg IM ASDIRECTED PRN PRN Reason: Post Hemorrhage Misoprostol (Cytotec) 200 mcg PO ONETIME PRN PRN Reason: Post Hemorrhage Misoprostol (Cytotec) 25 mcg PO ONETIME ONE Stop: 03/26/19 00:38 Last Admin: 03/26/19 01:18 Dose: 25 mcg Misoprostol (Cytotec) 50 mcg PO ONETIME ONE Stop: 03/26/19 06:29 Last Admin: 03/26/19 07:57 Dose: 50 mcg Misoprostol (Cytotec) 25 mcg VAG ONETIME PRN PRN Reason: Cervical Ripening Misoprostol (Cytotec) 25 mcg VAG Q4H PRN PRN Reason: Cervical Ripening Nalbuphine HCl (Nubain) 10 mg IVPUSH Q1H PRN PRN Reason: Pain (severe 7-10) Last Admin: 03/26/19 04:59 Dose: 10 mg Ondansetron HCl (Zofran) 4 mg IVPUSH Q4H PRN PRN Reason: Nausea/Vomiting Sodium Chloride (Saline Flush) 10 ml FLUSH ASDIRECTED PRN PRN Reason: Keep Vein Open Sodium Chloride (Saline Flush) 2.5 ml FLUSH ASDIRECTED PRN PRN Reason: Keep Vein Open Sodium Chloride (Normal Saline) 10 ml IV ASDIRECTED PRN PRN Reason: IV Use Sterile Water (Sterile Water For Irrigation) 1,000 ml IRR ASDIRECTED PRN PRN Reason: delivery Terbutaline Sulfate (Brethine) 0.25 mg SUBCUT ASDIRECTED PRN PRN Reason: Tacysystole - Interaction Disposition, : [place] to Nursery Infant Interaction: Not Applicable Infant Feeding: Bottle Fed Infant Support Person: - Recovery Exam Fundal Tone: Firm Fundal Level: 1 Fingerbreadths Below Umbilicus Fundal Placement: Midline Lochia Amount: Small Lochia Color: Rubra/Red Perineum Description: Edematous Episiotomy/Laceration: Approximated Bladder Status: Voiding Urinary Elimination: Voided - Exam General: Alert, Oriented, Cooperative, No Acute Distress Lungs: Normal Respiratory Effort GI/Abdominal Exam: Soft, Non-Tender Extremities: Normal Inspection, Normal Range of Motion, Non-Tender Skin: Warm, Dry, Intact Neurological: No New Focal Deficit, Normal Speech, Normal Tone Psy/Mental Status: Alert, Normal Affect, Normal Mood - Problem List & Annotations (1) (normal spontaneous vaginal delivery) SNOMED Code(s): 61865104, [id number] Code(s): O80 - ENCOUNTER FOR FULL-TERM UNCOMPLICATED DELIVERY Status: Acute Priority: High Current Visit: Yes - Problem List Review Problem List Initiated/Reviewed/Updated: Yes - Assessment Assessment:: Continue with recovery from uncomplicated . - Plan Plan:: Admit for SROM A: 28 yo EDC 04/04/2019 38 5/7wks A+, RI, GBS pos. Comes due to SROM P: Admit, Amp for GBS pos, epidural prn, anticipate . Dr Dodson updated Delivery A: Uncomplicated , 09/21, 8lb 0oz NBM, intact, EBL 200, stable P: Continue with POC. Day 1: A: 28 yo G1, now P1 on day 1 after at 38 5/7 weeks. P: Continue routine plan of care.
[2019-03-27] MEDS: Acetaminophen 500 MG Tab PO PRN ×3 (11:53→22:25)
[2019-03-28] MEDS: Docusate Sodium 100 MG Cap PO PRN (08:54)
[2019-03-28] MEDS: Acetaminophen 500 MG Tab PO PRN (08:54)
--- NOTE | 2019-03-28 09:28 | PCM.DCSUM1 ---
Discharge Summary - Hospital Course Free Text/Narrative:: Patient is a 28 yo S/P uncomplicated to [facility] at 38 wks gestation. A+ , RI, GBS pos. with adequate prophylaxis. Normal course of care. Bottle feeding well and appropriately, pain well controlled, bleeding well controlled, no warning S/Ss. Plans for [facility] circumcision today. Patient verbalizes readiness for D/C. VSS. - Discharge Data Discharge Date: 03/28/19 Discharge Disposition: Home, Self-Care 01 Condition: Good - Referral to Home Health Primary Care Physician: PCP Unknown - Discharge Diagnosis/Problem(s) (1) (normal spontaneous vaginal delivery) SNOMED Code(s): 28154764, [id number] ICD Code: O80 - ENCOUNTER FOR FULL-TERM UNCOMPLICATED DELIVERY Status: Acute Priority: High Current Visit: Yes - Patient Instructions Diet: Regular Diet as Tolerated, Drink 8-10+ Glasses/Day Diet, Other: Whole food diet high in fiber, protein, iron, and nutrients Activity: Apply Ice, No Strenuous Activities Activity, Other: Weight-bearing as tolerarted Driving: May Drive Today Showering/Bathing: May Shower Showering/Bathing, Other: May shower or sit in sitz baths for perineal comfort Notify Provider of: Fever, Increased Pain, Swelling and Redness, Drainage, Nausea and/or Vomiting - Discharge Plan *PRESCRIPTION DRUG MONITORING PROGRAM REVIEWED*: No *COPY OF PRESCRIPTION DRUG MONITORING REPORT IN PATIENT VERONICA: No Prescriptions/Med Rec: Ibuprofen [Motrin] 800 mg PO TID PRN #90 tablet MDD 2400 PRN Reason: Pain Home Medications: Home Meds LORazepam [Ativan] 0.5 mg PO ASDIRECTED PRN 08/24/18 [History] Pnv No.95/Ferrous Fum/Folic AC [ Multivitamin Tablet] 1 each PO DAILY [History] buPROPion HCl [Wellbutrin Xl] 300 mg PO DAILY 08/24/18 [History] Ibuprofen [Motrin] 800 mg PO TID PRN #90 tablet MDD 2400 03/28/19 [Rx] Oxygen Therapy Mode: Room Air Referrals: [facility] [Outside] Gaudencio Dodson MD [Physician] - 05/10/19 1:30 pm ( Follow up appointment May 09 at 1:30) - Discharge Summary/Plan Comment DC Time >30 min.: Yes (D/C today) - General Info Date of Service: 03/26/19 Admission Dx/Problem (Free Text: Patient Status Order with Admit Dx/Problem 03/25/19 23:27 Patient Status [ADT] Routine 03/26/19 00:29 Patient Status [ADT] Routine Admission Diagnosis/Problem Admission Diagnosis/Problem - planned 03/26/19 06:15 28 yo EDC 04/04/2019 38 5/7wks A+, RI, GBS pos. Comes due to [facility] Functional Status: Reports: Pain Controlled, Tolerating Diet, Ambulating, Urinating Numeric/FACES Score: 0 - Review of Systems General: Reports: No Symptoms HEENT: Reports: No Symptoms Pulmonary: Reports: No Symptoms Cardiovascular: Reports: No Symptoms Gastrointestinal: Reports: No Symptoms Genitourinary: Reports: No Symptoms Musculoskeletal: Reports: No Symptoms Skin: Reports: No Symptoms Neurological: Reports: No Symptoms Psychiatric: Reports: No Symptoms - Patient Data Vitals - Most Recent: Last Vital Signs Temp 96.4 F L 03/28/19 05:56 Pulse 65 03/28/19 05:56 Resp 16 03/28/19 05:56 BP 113/58 L 03/28/19 05:56 Pulse Ox 97 03/28/19 05:56 Weight - Most Recent: 276 lb Lab Results - Last 24 hrs: Laboratory Results - last 24 hr 03/26/19 Range/Units 00:55 RPR Non-Reac (Non-Reac) Med Orders - Current: Current Medications Acetaminophen (Tylenol Extra Strength) 500 mg PO Q4H PRN PRN Reason: Pain Acetaminophen (Tylenol Extra Strength) 1,000 mg PO Q4H PRN PRN Reason: Pain Last Admin: 03/28/19 08:54 Dose: 1,000 mg Benzocaine/Menthol (Dermoplast Pain Relief 20%-0.5% [place]) 78 gm TOP ASDIRECTED PRN PRN Reason: Perineal Comfort Measure Last Admin: 03/27/19 02:41 Dose: 1 sprays Bisacodyl (Dulcolax) 10 mg RECTAL ONETIME PRN PRN Reason: Constipation Docusate Sodium (Colace) 100 mg PO BID PRN PRN Reason: Constipation Last Admin: 03/28/19 08:54 Dose: 100 mg Emollient Ointment (Lansinoh Hpa) 0 gm TOP ASDIRECTED PRN PRN Reason: Sore Nipples Ibuprofen (Motrin) 400 mg PO Q4H PRN PRN Reason: Pain Ibuprofen (Motrin) 800 mg PO Q6H PRN PRN Reason: Pain Last Admin: 03/27/19 20:07 Dose: 800 mg Oxycodone HCl (Oxycodone) 5 mg PO Q2H PRN PRN Reason: Pain Witch Aylin (Tucks) 1 pad TOP ASDIRECTED PRN PRN Reason: comfort care Last Admin: 03/27/19 02:41 Dose: 1 applic Discontinued Medications Butorphanol Tartrate (Stadol) 1 mg IVPUSH Q1H PRN PRN Reason: Pain Carboprost Tromethamine (Hemabate Ds) 250 mcg IM ASDIRECTED PRN PRN Reason: Post Hemorrhage Fentanyl (Sublimaze) Confirm Administered Dose 100 mcg .ROUTE .STK-MED ONE Stop: 03/26/19 13:21 Fentanyl (Sublimaze) Confirm Administered Dose 100 mcg .ROUTE .STK-MED ONE Stop: 03/26/19 21:31 Tranexamic Acid 1,000 mg/ (Sodium Chloride) 110 mls @ 660 mls/hr IV ONETIME PRN PRN Reason: Bleeding Ampicillin Sodium 2 gm/ Sodium (Chloride) 100 mls @ 200 mls/hr IV ONETIME ONE Stop: 03/26/19 00:58 Last Admin: 03/26/19 01:05 Dose: 200 mls/hr Lactated Ringer's (Ringers, Lactated) 1,000 mls @ 150 mls/hr IV ASDIRECTED [facility] Last Admin: 03/26/19 01:05 Dose: 150 mls/hr Oxytocin/Sodium Chloride (Oxytocin 30 Unit/500 Ml-Ns) 30 unit in 500 mls @ 500 mls/hr IV TITRATE VINCENT Ampicillin Sodium 1 gm/ Sodium (Chloride) 50 mls @ 100 mls/hr IV Q4H [facility] Stop: 03/27/19 00:24 Last Admin: 03/26/19 18:47 Dose: 100 mls/hr Ropivacaine (Naropin 0.2%) Confirm Administered Dose 100 mls @ as directed .ROUTE .STK-MED ONE Stop: 03/26/19 13:21 Oxytocin/Sodium Chloride (Oxytocin 30 Unit/500 Ml-Ns) 30 unit in 500 mls @ 2 mls/hr IV TITRATE VINCENT; Protocol Last Titration: 03/26/19 22:00 Dose: 14 munits/min, 14 mls/hr Ropivacaine (Naropin 0.2%) Confirm Administered Dose 100 mls @ as directed .ROUTE .STK-MED ONE Stop: 03/26/19 21:31 Lidocaine HCl (Xylocaine 1%) 50 ml INJECT ONETIME PRN PRN Reason: Laceration repair Methylergonovine Maleate (Methergine) 0.2 mg IM ASDIRECTED PRN PRN Reason: Post Hemorrhage Misoprostol (Cytotec) 200 mcg PO ONETIME PRN PRN Reason: Post Hemorrhage Misoprostol (Cytotec) 25 mcg PO ONETIME ONE Stop: 03/26/19 00:38 Last Admin: 03/26/19 01:18 Dose: 25 mcg Misoprostol (Cytotec) 50 mcg PO ONETIME ONE Stop: 03/26/19 06:29 Last Admin: 03/26/19 07:57 Dose: 50 mcg Misoprostol (Cytotec) 25 mcg VAG ONETIME PRN PRN Reason: Cervical Ripening Misoprostol (Cytotec) 25 mcg VAG Q4H PRN PRN Reason: Cervical Ripening Nalbuphine HCl (Nubain) 10 mg IVPUSH Q1H PRN PRN Reason: Pain (severe 7-10) Last Admin: 03/26/19 04:59 Dose: 10 mg Ondansetron HCl (Zofran) 4 mg IVPUSH Q4H PRN PRN Reason: Nausea/Vomiting Sodium Chloride (Saline Flush) 10 ml FLUSH ASDIRECTED PRN PRN Reason: Keep Vein Open Sodium Chloride (Saline Flush) 2.5 ml FLUSH ASDIRECTED PRN PRN Reason: Keep Vein Open Sodium Chloride (Normal Saline) 10 ml IV ASDIRECTED PRN PRN Reason: IV Use Sterile Water (Sterile Water For Irrigation) 1,000 ml IRR ASDIRECTED PRN PRN Reason: delivery Terbutaline Sulfate (Brethine) 0.25 mg SUBCUT ASDIRECTED PRN PRN Reason: Tacysystole - Exam General: Reports: Alert, Oriented HEENT: Reports: Pupils Equal Lungs: Reports: Clear to Auscultation, Normal Respiratory Effort Cardiovascular: Reports: Regular Rate, Regular Rhythm GI/Abdominal Exam: Normal Bowel Sounds, Soft, Non-Tender, No Organomegaly, No Distention, No Mass, Pelvis Stable, Other (Obese body habitus, fundus @U) (Female) Exam: Deferred Rectal (Female) Exam: Deferred Back Exam: Reports: Normal Inspection, Full Range of Motion Extremities: Normal Inspection, Normal Range of Motion, Non-Tender, Normal Capillary Refill, Pedal Edema (Non pitting) Skin: Reports: Warm, Dry, Intact Neurological: Reports: No New Focal Deficit, Normal Gait, Normal Speech, Normal Tone Psy/Mental Status: Reports: Alert, Normal Affect, Normal Mood Physical Findings Comments:: Patient is a 28 yo S/P uncomplicated to [facility] at 38 wks gestation. A+ , RI, GBS pos. with adequate prophylaxis. Normal course of care. Bottle feeding well and appropriately, pain well controlled, bleeding well controlled, no warning S/Ss. Plans for [facility] circumcision today. Patient verbalizes readiness for D/C. VSS. Physical exam normal for course. Warning signs/symptoms, when to call for help discussed with patient. She has no questions, comments, or concerns at this time. Plan to F/U in office for 6 week visit, or sooner if problems or concerns arise.
== END 2019-03-28 11:44 | disposition home or self-care (01) | DRG 560 ==
LOC: MW.OBCHECK 23:14 → MW.OB 23:14 → MW.OBCHECK 03-26 00:29 → OBSVTOIN 03-26 23:49 → MW.OB 03-27 03:51
PROVIDERS: ADMIT Obstetrics & Gynecology; ATTEND Obstetrics & Gynecology
PROC: 10E0XZZ Delivery of Products of Conception, External Approach (ICD-10-PCS; principal; 2019-03-26)
PROC: 3E0P7VZ Introduction of Hormone into Female Reproductive, Via Natural or Artificial Opening (ICD-10-PCS; 2019-03-26)
PROC: 3E0R3BZ Introduction of Anesthetic Agent into Spinal Canal, Percutaneous Approach (ICD-10-PCS; 2019-03-26)
PROC: 00HU33Z Insertion of Infusion Device into Spinal Canal, Percutaneous Approach (ICD-10-PCS; 2019-03-26)
DX: O99.344 Other mental disorders complicating childbirth (principal); F32.9 Major depressive disorder, single episode, unspecified; F41.9 Anxiety disorder, unspecified; O99.824 Streptococcus B carrier state complicating childbirth; Z87.891 Personal history of nicotine dependence; Z3A.38 38 weeks gestation of pregnancy; Z37.0 Single live birth; Z79.899 Other long term (current) drug therapy
CPT/HCPCS: 01967; 36415; 51702; 59025; 59409; 84112; 85027; 86592; 86850; 86900; 86901; A9270-GY; J0290; J2300; J2590; J7050; J7120